=== PATIENT | male | born 1990 | race Caucasian/White ===

== ENCOUNTER 2019-08-14 08:47 | Emergency (ER) | payer OTHER ==
--- NOTE | 2019-08-14 11:09 | ED Physician Documentation ---
PD HPI BACK PAIN - Stated complaint Stated Complaint: LT LEG PX - Chief complaint Chief Complaint: Ext Problem - History obtained from History obtained from: Patient Results - Vitals Vitals: Vital Signs - 24 hr 08/14/19 08:53 Temperature 36.5 C Heart Rate 82 Respiratory 14 Rate Blood Pressure 136/87 H O2 Saturation 98 Oxygen O2 Source Room air
[2019-08-14] MEDS ORDERED: IBUPROFEN 600 MG TABLET PO STA (11:32)
--- NOTE | 2019-08-14 11:32 | ED Physician Documentation ---
PD HPI LOWER EXT INJURY - Stated complaint Stated Complaint: LT LEG PX - Chief complaint Chief Complaint: Ext Problem - History obtained from History obtained from: Patient - History of Present Illness PD HPI LOW EXT INJURY LOCATION: Left, Lower leg, Ankle Type of injury: No: Fall, Twist Where injury occurred: Work Timing - onset: How many months ago (1) Timing - details: Gradual onset, Still present, Waxing and waning Improved by: Rest Worsened by: Moving, Other (working out or prolonged walking) Associated symptoms: No: Weakness, Numbness, Swelling, Discolored Contributing factors: Work related, Other (No prior recent antibiotics). No: Prior ortho surgery Similar symptoms before: No diagnosis Review of Systems Constitutional: denies: Fever, Chills, Myalgias Skin: denies: Rash, Lesions Neurologic: denies: Focal weakness, Numbness PD PAST MEDICAL HISTORY - Past Medical History Cardiovascular: None Endocrine/Autoimmune: None Musculoskeletal: None - Present Medications Home Medications: Ambulatory Orders Medication Instructions Recorded Confirmed Naproxen 500 mg PO BID #20 tablet 08/14/19 - Allergies Allergies/Adverse Reactions: Allergies Allergy/AdvReac Type Severity Reaction Status Date / Time No Known Drug Allergies Allergy Verified 08/14/19 11:44 PD ED PE NORMAL - Vitals Vital signs reviewed: Yes - General General: Alert and oriented X 3, Well developed/nourished - Derm Derm: Normal color, Warm and dry, No rash - Extremities Extremities: Other (The left mid Achilles area shows area of tenderness. There is no softness or defect in the firmness of the cord. There is no tenderness at the attachment point at the heel per se. The upper muscle in the calf is nontender. There is no redness or swelling noted. There is pain with active plantarflexion and passive dorsiflexion in that same area.) - Neuro Neuro: No motor deficit, No sensory deficit Results - Vitals Vitals: Oxygen O2 Source Room air - Rads (name of study) ankle xray Radiology: Prelim report reviewed, EMP read contemporaneously (no spurs nor calcifications), See rad report PD MEDICAL DECISION MAKING - ED course Complexity details: reviewed results, considered differential, d/w patient Departure - Departure Disposition: 01 Home, Self Care Clinical Impression: Achilles tendonitis Qualifiers: Laterality: left Qualified Code(s): M76.62 - Achilles tendinitis, left leg Condition: Stable Record reviewed to determine appropriate education?: Yes Instructions: Achilles Tendonitis Follow-Up: BLAYNE Schwab [Provider Group] Prescriptions: Naproxen 500 mg PO BID #20 tablet Comments: Use the boot orthosis during the day and when active to reduce motion in the ankle and Achilles for the next week. You can have it off when resting. Additionally be sure to get a small heel cup or heel support to take a slight angle off the tension of the Achilles tendon. To have that in the walking boot initially and continue use of that when you return to normal shoes and boots for about 3 weeks. Anti-inflammatory of naproxen twice daily for the next 7 to 10 days. Add Tylenol if needed for pain. Follow-up with your primary care or orthopedics in about 4 to 5 days to see how much improvement you are having and if other treatment is needed. Forms: Activity restrictions Discharge Date/Time: 08/14/19 12:41
--- NOTE | 2019-08-14 12:28 | XRAY Report ---
Reason: left achilles/heel pain for a month Procedure Date: 08/14/2019 Accession Number: [id number] / [id number] Procedure: XR - Ankle 3 View LT CPT Code: Final Report FULL RESULT: EXAM: LEFT ANKLE RADIOGRAPHY EXAM DATE: 08/14/2019 12:09 PM. CLINICAL HISTORY: Left achilles/heel pain for a month. COMPARISON: None. TECHNIQUE: 3 views. FINDINGS: Bones: Normal. No fractures or bone lesions. Joints: Normal. No effusion. No subluxations. The ankle mortise is normally aligned. Soft Tissues: Normal. No soft tissue swelling. IMPRESSION: Normal ankle radiography. [facility]
[2019-08-14 12:41] VITALS: BP 117/87
== END 2019-08-14 12:41 | disposition home or self-care (01) ==
LOC: ED 08:47
DX: M76.62 Achilles tendinitis, left leg (principal)
CPT/HCPCS: 73610; 99283; A9270